=== PATIENT | male | born 1955 | race Caucasian/White ===

== ENCOUNTER → 2016-09-06 | Outpatient (CLI) | payer BC | LOC: MHCPAIN 07:53 | DX: G89.29 Other chronic pain (principal); M47.27 Other spondylosis with radiculopathy, lumbosacral region; M84.48XA Pathological fracture, other site, initial encounter for fracture | CPT/HCPCS: G0463 ==

== ENCOUNTER → 2016-09-16 | Outpatient (CLI) | payer BC | LOC: MHCPAIN 13:19 | DX: M47.817 Spondylosis without myelopathy or radiculopathy, lumbosacral region (principal) | CPT/HCPCS: J1100; Q9967 ==

== ENCOUNTER → 2016-10-15 | Outpatient (CLI) | payer BC | LOC: MHCPAIN 12:26 | DX: G89.29 Other chronic pain (principal); M47.817 Spondylosis without myelopathy or radiculopathy, lumbosacral region; M54.16 Radiculopathy, lumbar region | CPT/HCPCS: G0463 ==

== ENCOUNTER → 2016-10-21 | Outpatient (CLI) | payer BC | LOC: MHCPAIN 12:12 | DX: M47.817 Spondylosis without myelopathy or radiculopathy, lumbosacral region (principal) | CPT/HCPCS: J1040; Q9967 ==

== ENCOUNTER → 2016-12-01 | Outpatient (CLI) | payer BC | LOC: MHCPAIN 12:21 | DX: G89.29 Other chronic pain (principal); M47.817 Spondylosis without myelopathy or radiculopathy, lumbosacral region; M54.16 Radiculopathy, lumbar region; M53.3 Sacrococcygeal disorders, not elsewhere classified | CPT/HCPCS: G0463 ==